=== PATIENT | female | born 1945 | race Caucasian/White ===

== ENCOUNTER 2019-09-18 20:12 | Emergency (ER) | payer MEDICARE, BC, SELFPAY ==
[2019-09-18 20:16] VITALS: BP 167/79; PULSE 79; RESP 18; TEMP 36.6; O2SAT 97
--- NOTE | 2019-09-18 20:32 | DI.RAD_ITS ---
EXAM: 2D digital imaging was performed. CLINICAL HISTORY: constipation, vomiting, r/o obstruction. COMPARISON: No exams were available for comparison TECHNIQUE: Supine and uprightSupine and Lateral views of the abdomen was performed. FINDINGS: LUNG BASES: Clear. BOWEL GAS PATTERN: Nondistended. Moderate amount of retained stool. FREE AIR: None. CALCIFICATIONS: No radiopaque calcifications. OSSEOUS STRUCTURES: Degenerative changes in the spine. OTHER FINDINGS: Surgical clips in the right upper quadrant of the abdomen. IMPRESSION: No evidence of an acute abdomen. DATA REPOSITORY: RADIATION DOSE DELIVERED:
--- NOTE | 2019-09-18 20:35 | W.ED.GENAD ---
Discharge Plan Disposition Patient Disposition: HOME Condition: Good Discharge Details Chief Complaint: Abd Prob Clinical Impression: Constipation Primary Care Provider: Sidra Funez ED Provider: Edward Cordoba Home Meds and New Rx's Prescriptions: New dicyclomine 10 mg capsule 10 mg PO BID Qty: 10 RF: 0 Continued Inflammation Tonic See Rx Instructions .ROUTE .COMPLEX RF: 0 hydrochlorothiazide 12.5 mg capsule 12.5 mg PO DAILY Qty: 90 RF: 4 metoprolol tartrate 25 mg tablet 25 mg PO DAILY Qty: 90 RF: 4 clobetasol-emollient 0.05 % cream 1 applic Topical BID PRN (Reason: lichen sclerosus) Qty: 15 RF: 3 ibuprofen 200 MG capsule 200 mg PO PRN RF: 0 Discharge Instructions Instructions: Constipation (ED) Additional Instructions: At this time your x-ray shows evidence of significant stool burden, there is concern for constipation. No evidence of obstruction. Please take the Bentyl as needed, and take the magnesium citrate tomorrow with 10 to 12 cups of water. It is likely you will have significant cramping at that time. This will help cleanse the colon. If you notice any worsening of your symptoms, or any new symptoms such as vomiting, diarrhea, fever, chills, shortness of breath, chest pain, numbness, weakness, or fainting , please return immediately to the emergency department for reevaluation. Please follow up with your primary care provider as soon as possible for reassessment and reevaluation. As always, it was a pleasure participating in your medical care today. Referrals: Sidra Funez MD [Primary Care Provider] - Medical Decision Making 74-year-old female with a past medical history of bilateral salpingo-oophorectomy, cholecystectomy, who presents today for evaluation of abdominal pain and constipation. Patient states that she has had notably firm stool over the last few days, last bowel movement was 2 and half days ago. They were small hard little nodules. No blood. Over the last 2 days she is also had mild nausea, mild lower abdominal fullness and mild achiness states intermittent. She admits to 1 or 2 episodes of vomiting, the most recent being early this morning. Since then she has been drinking well throughout the day, but has not had any food. She is still urinating. She denies any hematemesis, hematochezia, melena. She denies any fever or chills. She did take a rectal suppository stool softener, this did not improve her symptoms. No other complaints at this time. No other modifying factors. Physical exam is relatively unremarkable, no significant abdominal tenderness, or signs of an acute surgical abdomen. No guarding or rebound. Bowel sounds present but slightly reduced. Rectal exam demonstrates no hard stool ball. Signs and symptoms appear concerning for constipation. However with the previous surgeries will week we will get a plain film to rule out ileus or obstruction which I feel less likely. We did discuss CT imaging, but they are shared decision making process we will hold off on this, start with labs and x-ray and enema and then reassess after that. With no signs of an acute surgical abdomen I see no current clinical indication for emergent CT scan at this time. 9:55 PM Patient has been reassessed after fluids and enema. X-ray results show no evidence of ileus or obstruction or significant mass or other abnormality. Does show evidence of notable stool burden. Unfortunately she was not able to keep the enema in for an extended period of time. She is feeling much better and her cramping has resolved. She has had no vomiting and is been able to tolerate liquid p.o. well. Laboratory work-up is relatively unremarkable. No bandemia electrolytes are stable, BUN slightly elevated, no other significant abnormality. Lipase normal. At this time the patient feels well and would like to go home. We did discuss options of CAT scan, repeat enema and mag citrate here, but the patient would like to go home for this after discussion. We will discharge with Bentyl, mag citrate bottle. Recommended plenty of fluids tomorrow in conjunction with the mag citrate and Bentyl. Did recommend to the patient that if her symptoms worsen or do not resolve that she returns and will get the CT scan as previously discussed. If you notice any worsening of your symptoms, or any new symptoms such as vomiting, diarrhea, fever, chills, shortness of breath, chest pain, numbness, weakness, or fainting , please return immediately to the emergency department for reevaluation. Please follow up with your primary care provider as soon as possible for reassessment and reevaluation. As always, it was a pleasure participating in your medical care today. Diagnosis constipation mild dehydration. FINDINGS: Gastrointestinal tract: Normal. No bowel dilation. There is a moderate to large amount of stool in the colon. Intraperitoneal space: Normal. No free air. Bones/joints: Unremarkable for age. IMPRESSION: No acute findings. Thank you for allowing us to participate in the care of your patient. Dictated and Authenticated by: Zaki Gibbons DO 09/18/2019 9:06 PM Eastern Time ([place] & [place]) HPI General Date/Time Provider Initiated Documentation: 09/18/19 20:24. HPI Narrative: 74-year-old female with a past medical history of bilateral salpingo-oophorectomy, cholecystectomy, who presents today for evaluation of abdominal pain and constipation. Patient states that she has had notably firm stool over the last few days, last bowel movement was 2 and half days ago. They were small hard little nodules. No blood. Over the last 2 days she is also had mild nausea, mild lower abdominal fullness and mild achiness states intermittent. She admits to 1 or 2 episodes of vomiting, the most recent being early this morning. Since then she has been drinking well throughout the day, but has not had any food. She is still urinating. She denies any hematemesis, hematochezia, melena. She denies any fever or chills. She did take a rectal suppository stool softener, this did not improve her symptoms. No other complaints at this time. No other modifying factors. Related Data Home Medications Medication Instructions Recorded Confirmed ibuprofen 200 mg PO PRN 12/14/16 07/27/19 Inflammation Tonic See Rx Instructions .ROUTE .COMPLEX 07/21/18 07/27/19 clobetasol-emollient 0.05 % 1 applic TOPICAL BID PRN #15 gm 07/27/19 07/27/19 topical cream hydrochlorothiazide 12.5 mg capsule 12.5 mg PO DAILY #90 tab-cap 07/27/19 07/27/19 metoprolol tartrate 25 mg tablet 25 mg PO DAILY #90 tab-cap 07/27/19 07/27/19 dicyclomine 10 mg PO BID #10 cap 09/18/19 Previous Rx's Medication Instructions Recorded clobetasol-emollient 0.05 % 1 applic TOPICAL BID PRN #15 gm 07/27/19 topical cream hydrochlorothiazide 12.5 mg capsule 12.5 mg PO DAILY #90 tab-cap 07/27/19 metoprolol tartrate 25 mg tablet 25 mg PO DAILY #90 tab-cap 07/27/19 dicyclomine 10 mg PO BID #10 cap 09/18/19 Allergies Allergy/AdvReac Type Severity Reaction Status Date / Time neomycin Allergy Intermediate red, Unverified 07/27/19 14:38 burning Penicillins Allergy Intermediate hives Unverified 07/27/19 14:38 General Stated Complaint: Abd Prob IRVIN: 3 Review of Systems All systems reviewed & are unremarkable except as noted in HPI and below PFSH Medical History Benign hypertension Surgical History bunionectomy (~04/2004) Cholecystectomy (~2000) Ligation of fallopian tube (~1979) Tonsillectomy (~1957) Family History Mother Essential hypertension Heart disease Father Diabetes Sister No problems noted. Brother Diabetes Essential hypertension Heart disease Hyperlipidemia Maternal Grandfather Intestinal cancer Paternal Grandfather No problems noted. Maternal Grandmother Heart disease Paternal Grandmother Pulmonary hemorrhage Brother Essential hypertension Heart disease Hyperlipidemia Brother Essential hypertension FAMILY HISTORY Essential hypertension Myocardial infarction Social History Smoking/Tobacco Use Status: Never Second Hand Exposure: Yes (as a child) Alcohol Intake: current Alcohol Intake frequency: a few times a month Alcohol type: beer, wine and hard liquor Drug use: Never Substance use type: does not use Caregiver/Support person: No Household members: spouse Housing: house Communication Needs: None Do you need help understanding health information?: Rarely Pets and animals: Yes Pets and animals: cat(s) and dog(s) Sexually active: No Do you think of yourself as: lesbian/arteaga/homosexual Current gender identity: female What is your relationship status?: How often do you talk on the phone with friends or family?: three or more times per week How often do you get together with friends or relatives?: once per week How often do you attend mormon or episcopal services?: decline to answer Do you belong to any clubs or organized social groups?: yes Panel score (0-1 are the most socially isolated patients): 3 What type of physical activity do you participate in: walking and other Details: gardening, snowshoeing Duration: 30-45 minutes/day Frequency: daily Adenike/Sikhism: None Special adenike needs: No Seatbelt use: always Helmet use: Yes Helmet use: always Drive intox or ride w/intox port cdl a driver: No Do you feel safe at home: Yes Do you feel safe in your relationship?: Yes Exam Narrative Exam Narrative: 1.Const: Well-nourished, Well-developed, appearing stated age 2.Eyes: PERRL, no conjunctival injection, and symmetrical lids. 3.ENT: Atraumatic external nose and ears. Moist MM. Neck: Symmetric, trachea midline, No thyromegaly. 4.CVS: +S1/S2, No murmurs or gallops. Peripheral pulses 2+ and equal in all extremities. Brisk capillary refill in all extremities. 5.RESP: Unlabored respiratory effort. Clear to auscultation bilaterally. No wheezes rales or rhonchi 6.GI: Soft, Nontender/Nondistended, No hepatosplenomegaly. No guarding or rebound. No pain at McBurney's point, negative Antoine sign. No significant tenderness, no signs of an acute abdomen or surgical abdomen. Rectal exam was performed with nurse Cesilia at bedside, no large hard stool ball in the rectal vault. 7.MSK: Normocephalic/Atraumatic, Extremities w/o deformity or ttp No cyanosis or clubbing, Normal movement of all extremities 8.Skin: Warm, Dry. No rashes or lesions. 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 Sensation grossly intact, no focal neurologic deficits. 10.Psych: (AAO) x3. Appropriate mood and affect Course Vital Signs Vital signs: Vital Signs Temperature 36.6 C 09/18/19 20:16 Pulse 79 09/18/19 20:16 Respiratory Rate 18 09/18/19 20:16 Blood Pressure 167/79 H 09/18/19 20:16 Pulse Oximetry 79 L 09/18/19 20:16 Temperature 36.6 C 09/18/19 20:16 Temperature Source Temporal Artery Scan 09/18/19 20:16 Pulse 79 09/18/19 20:16 Respiratory Rate 18 09/18/19 20:16 Blood Pressure 167/79 H 09/18/19 20:16 Blood Pressure Position Sitting 09/18/19 20:16 Pulse Oximetry 79 L 09/18/19 20:16 Pain Level 2 09/18/19 20:16
[2019-09-18 20:45] LABS: Abs Immature Grans 0.03 k/cumm (0.0-0.09); Absolute Basophil Count 0.01 k/cumm (0.0-0.2); Absolute Eosinophil Count 0.01 k/cumm (0.0-0.7); Absolute Monocyte Count 0.42 k/cumm (0.11-0.7); Absolute Neutrophil Count 10.94 k/cumm (1.2-6.7); Basophils % 0.1; Eosinophils % 0.1; HCT 41.8 % (36.0-46.0); HGB 14.5 g/dL (12.0-15.5); Immature Grans % 0.2 %; Lymphocytes % 7.3; Mean Corp. HGB Concentration 34.7 g/dL (32.0-36.0); Mean Corpuscular Hemoglobin 29.5 pg (27.0-33.0); Mean Corpuscular Volume 85.1 fL (80-95); Mean Platelet Volume 11.6 fL (8.0-11.0); Monocytes % 3.4; Neutrophils % 88.9; Platelet Count 246 x1000/uL (130-400); RBC 4.91 m/cumm (4.00-5.20); RBC Distribution Width 13.2 % (11.7-14.6); White Blood Cell Count 12.31 k/cumm (4.4-10.8)
[2019-09-18 20:56] LABS: ALT 30 U/L (14-59); AST 25 U/L (15-37); Alkaline Phosphatase 92 U/L (46-116); Anion Gap 12.5 mmol/L (3-11); BUN 21 mg/dL (7-18); Bilirubin, Total 0.8 mg/dL (0.2-1.0); CO2 24.5 mmol/L (21.0-32.0); Calcium 9.4 mg/dL (8.5-10.1); Chloride 99 mmol/L (98-107); Estimated GFR 44.16 (mL/min/1.73m2); Glucose 137 mg/dL (74-106); Lipase 65 U/L (73-393); Potassium 3.4 mmol/L (3.5-5.1); Sodium 136 mmol/L (136-145); Total Protein 7.6 g/dL (6.4-8.2)
[2019-09-18] MEDS: Normal Saline 1,000 ML 1000 ML IV (21:00)
--- NOTE | 2019-09-18 21:07 | DI.VRAD_ITS ---
PROCEDURE INFORMATION: Exam: XR Abdomen, 2 Views Exam date and time: 09/18/2019 8:50 PM Age: 74 years old Clinical indication: Other: Contipation, vomiting, R/O obstruction; Prior surgery; Surgery date: 6+ months; Surgery type: Gall bladder, tubal ligation TECHNIQUE: Imaging protocol: XR of the abdomen. Views: 2 Views. COMPARISON: CT ABD PELVIS WO CONTRAST 08/05/2016 12:48 AM FINDINGS: Gastrointestinal tract: Normal. No bowel dilation. There is a moderate to large amount of stool in the colon. Intraperitoneal space: Normal. No free air. Bones/joints: Unremarkable for age. IMPRESSION: No acute findings. Dictated and Authenticated by: Zaki Gibbons MD. Ordering:ANTIONE Leon MD
[2019-09-18 21:57] VITALS: BP 132/62; PULSE 88; RESP 16; TEMP 36.6; O2SAT 98
[2019-09-18] MEDS: Dicyclomine 20 MG TAB PO (21:57)
[2019-09-18] MEDS: Magnesium Citrate 300 ML BTL 150 ML PO (21:57)
== END 2019-09-18 22:00 | disposition home or self-care (01) ==
PROVIDERS: Emergency Provider Student in an Organized Health Care Education/Training Program; PCP Family Medicine
DX: K59.00 Constipation, unspecified (principal); R11.2 Nausea with vomiting, unspecified; E86.0 Dehydration; I10 Essential (primary) hypertension
CPT/HCPCS: 36415; 80053; 83690; 96360; 99284; 74019; 85025; 99285

== ENCOUNTER 2020-01-11 08:13 | Outpatient (CLI) | payer MEDICARE, BC, SELFPAY ==
[2020-01-15 12:23] LABS: Patient Race White; SARS-CoV-2 RNA Undetected (Undetected); SARS-CoV-2 Specimen Source Nasal
== END 2020-01-11 08:33 ==
PROVIDERS: PCP Family Medicine; Visit Provider Emergency Medicine
DX: R50.9 Fever, unspecified (principal)
CPT/HCPCS: U0003

== ENCOUNTER 2020-01-17 22:22 | Outpatient (REF) | payer MEDICARE, BC, SELFPAY ==
[2020-01-17 22:27] LABS: Bilirubin Negative (Negative); Blood Trace-intact (Negative); Clarity Clear (Clear); Glucose Negative (Negative); Ketones Negative (Negative); Leukocyte Esterase Small (Negative); Nitrite Negative (Negative); Specific Gravity 1.025 (1.005-1.025); Urobilinogen 0.2 EU/dL (Up TO 0.2); pH 5.5 (5-8)
[2020-01-17 22:30] LABS: C & S Indicated? C&S Done As Ordered
[2020-01-17 22:34] LABS: Bacteria Few HPF (Negative); Casts Negative LPF (Negative); Crystals Negative HPF (Negative); Epithelial Cells Few HPF (Negative); Mucus Negative (Negative); WBC >50 HPF (0-5)
== END 2020-01-17 22:42 ==
LOC: LBN 22:22
PROVIDERS: PCP Family Medicine; Visit Provider Nurse Practitioner Family
DX: N39.0 Urinary tract infection, site not specified (principal)
CPT/HCPCS: 81003; 81015; 87086

== ENCOUNTER 2020-01-26 03:01 | Outpatient (CLI) | payer MEDICARE, BC, SELFPAY ==
[2020-01-26 08:25] LABS: Anion Gap 6.1 mmol/L (3-11); BUN 16 mg/dL (7-18); CO2 26.9 mmol/L (21.0-32.0); CREATININE 1.19 mg/dL (0.55-1.02); Calcium 9.4 mg/dL (8.5-10.1); Calculated LDL 147 mg/dL (<100); Chloride 104 mmol/L (98-107); Cholesterol 222 mg/dL (<200); Estimated GFR 44.59 (mL/min/1.73m2); Glucose 87 mg/dL (74-106); HDL Cholesterol 52 mg/dL (40-60); Potassium 3.7 mmol/L (3.5-5.1); Sodium 137 mmol/L (136-145); Triglyceride 117 mg/dL (<150)
== END 2020-01-26 03:21 ==
PROVIDERS: PCP Family Medicine; Visit Provider Emergency Medicine
DX: I10 Essential (primary) hypertension (principal); E78.5 Hyperlipidemia, unspecified
CPT/HCPCS: 36415; 80048; 80061